=== PATIENT | male | born 1995 | race African-American/Black ===

== ENCOUNTER → 2016-07-14 18:05 | Emergency (ER) | payer OTHER | END | disposition home or self-care (01) | LOC: CED 18:05 | DX: L73.9 Follicular disorder, unspecified (principal); J45.909 Unspecified asthma, uncomplicated; Z98.890 Other specified postprocedural states; Z91.010 Allergy to peanuts | CPT/HCPCS: 87070; 87077; 87186; 87205; 99282; 99283 ==